=== PATIENT | male | born 1990 | race Caucasian/White ===

== ENCOUNTER 2023-02-11 13:25 | Emergency (ER) | payer OTHER, SELFPAY ==
--- NOTE | 2023-02-11 13:29 | ED_ITS ---
HPI - Skin/Abscess/Foreign Bdy General Chief complaint: Wound/Laceration Stated complaint: l thigh laceration Time Seen by Provider: 02/11/23 13:39 Source: patient and RN notes reviewed History of Present Illness HPI narrative: 32-year-old male with no significant past medical history presenting to the ED complaining of laceration to left anterior thigh s/p using angle mash grinder/saw to cut metal oil tank [employer]. Tetanus unknown. States saw slipped and back last h itting leg. Denies injury to other area, numbness, tingling, weakness. Has been ambulatory. complaint: laceration Related Data Previous Rx's Medication Instructions Recorded cephalexin 500 mg capsule 500 mg PO QID 7 days #28 caps 02/11/23 Allergies Allergy/AdvReac Type Severity Reaction Status Date / Time penicillin V Allergy Unknown Verified 05/13/12 00:00 Sulfa (Sulfonamide Allergy Unknown Verified 05/13/12 00:00 Antibiotics) Review of Systems Review of Systems: Constitutional: No Fever, No Chills ENT/Mouth: No Ear Pain, No Nasal Congestion, No sore throat, No Rhinorrhea, No Swallowing Difficulty Cardiovascular: No Chest Pain, No SOB Respiratory: No Cough, No Sputum Gastrointestinal: No Nausea, No Vomiting, No Abdominal pain Musculoskeletal: No joint pain, No Myalgias, No Joint Swelling Skin: + laceration, No rash Neuro: No Weakness, No Numbness, No Paresthesias Yes all other systems are reviewed and are negative Constitutional: Constitutional: Reports as per [facility] Past Medical History Attestation statement: The following information was validated with the patient. Source: old records reviewed Social History Social History Alcohol intake: current Alcohol intake frequency: holidays/special occasions only Smoked in Last 30 Days: No Use of substances other than those prescribed or required for medical reasons: No Advance Directives: No Physical Exam Vital Signs: Vital Signs: Last Vital Signs Temp 97.9 F 02/11/23 15:40 Pulse 80 02/11/23 15:40 Resp 18 02/11/23 15:40 BP 134/82 02/11/23 15:40 Pulse Ox 98 02/11/23 15:40 O2 Del Method Room Air 02/11/23 15:40 BMI result Body Mass Index 26.5 Const: General: cooperative, healthy appearing and no acute distress Orientation/consciousness: patient oriented x3 Limitations: no limitations HEENT: Head: Yes normal to inspection and Yes atraumatic Ears: hearing grossly normal bilaterally General nose exam: Normal external nose present Face and sinus: Yes normal facial exam Eyes: General: appearance normal, both eyes and all related structures EOM: EOMs intact bilaterally Neck: Neck: Yes normal visual inspection and Yes no meningeal signs Resp: Effort & Inspection: normal respiratory effort and no respiratory distress Cardio: Rate: regular rate Skin: Other: 5 cm laceration noted to left anterior t high with subcutaneous tissue present. Underlying structures appear intact. Bleeding controlled. Neurovascular intact distally Rashes: no rashes Neuro: General: patient oriented x3, tone normal and no meningeal signs Cranial nerves: Yes CN's II-XII intact bilaterally Gait exam (Neuro): Normal gait present Extrem: General: Yes normal to inspection Course Course Course Narrative: RME:?32 yo male here w/ laceration to anterior left thigh while using saw to cut an oil tank at home just [employer]. did not wash out prior to coming here. tetanus not UTD. + [id number] linear laceration to anterior left thigh involving SQ layer. no active bleeding. no visible FB or involvement of deeper structures. will need repair. plan: xr, lac repair, tdap Full HPI, ROS and PE to be performed by the primary ED provider. Medications Administered Discontinued Medications Generic Name Dose Route Start Last Admin Trade Name Freq PRN Reason Stop Dose Admin Bacitracin 1 appl 02/11/23 15:36 02/11/23 15:44 Bacitracin Oint 0.9 Gm Packet TOPICAL 02/11/23 15:37 1 appl ONCE ONE Administration Protocol Diphtheria/Tetanus/Acell Pertussis 0.5 ml 02/11/23 13:32 02/11/23 14:12 Diphth,Pertus(Acell),Tet Adult 0.5 Ml Syringe IM 02/11/23 13:33 0.5 ml .ONCE ONE Administration Lidocaine/Epinephrine 10 ml 02/11/23 13:49 02/11/23 14:12 Lidocaine Hcl 1%/Epi 1:100,000 10 Ml Vial INFILTRATI 02/11/23 13:50 10 ml ONCE ONE Administration Medical Decision Making Medical Decision Making [facility] Narrative: 32-year-old male with no significant past medical history presenting to the ED complaining of laceration to left anterior thigh s/p using angle mash grinder/saw to cut metal oil tank [employer]. On exam vital signs stable, NAD, nontoxic appearing, physical exam as noted above. Laceration to left anterior thigh, contaminated, no appreciable foreign body. Underlying structures appear intact. Low suspicion for fracture, tendon/ligament or nerve or rupture. Plan: Clean wound, update tetanus, repair wound Please refer to course for remaining clinical decision making, interpretation of labs/imaging results, and discussions with consultants and/or family members. Differential Diagnosis Differential Diagnoses: The differential diagnosis associated with the presentation includes As above External Record Review External record reviewed: Inpatient record, Office record, Outpatient record, Prior outpatient labs, Prior outpatient radiology, Primary care record and Outside ED record Tests considered The following testing was considered but not selected: As above Prescription Management I considered prescription management with: Pain Medication and Antibiotic Procedures Laceration Laceration 1: Site: lower extremity Side (If applicable): left Size (cm): 5 Description: linear Depth: simple, single layer Local Anesthetic: lidocaine 1% Amount of anesthesia used (mL): 8 Pre-repair: wound explored, irrigated extensively, deep structures intact and extensive debridement Skin layer closed with: nylon Size (cm): 4-0 Number of sutures: 9 Technique: simple, interrupted Discharge Plan Discharge Clinical Impression: Laceration Patient Disposition: Home, Self-Care Instructions: Laceration (DC) Additional Instructions: Your wounds were repaired today in the emergency department. Keep dry and clean. You need to return to any emergency department, urgent care, or your PCPs office in 7-10 days for suture removal. Closer to 10 with depth of your wound Apply bacitracin and or Neosporin daily Keflex is an antibiotic please take as prescribed Once sutures are removed apply anti scar cream like Mederma If area begins look infected, is red, there is drainage, streaking, or you have fever please return to the emergency department Prescriptions: New cephalexin 500 mg capsule 500 mg PO QID 7 Days Qty: 28 0RF Referrals: Kamilah Brito PA-C [Primary Care Provider] - 10 days
[2023-02-11 13:31] VITALS: BP 137/85; PULSE 84; RESP 16; TEMP 36.1; O2SAT 96; BMI 26.5
[2023-02-11] MEDS: Lidocaine HCl 1%/Epi 1:100,000 10 ML VIAL INFILTRATI (14:12)
[2023-02-11] MEDS: Diphth,Pertus(ACell),Tet Adult 0.5 ML SYRINGE IM (14:12)
--- NOTE | 2023-02-11 14:15 | PC.NURSE ---
medication administered per provider order. lidocaine placed bedside for provider use.
--- NOTE | 2023-02-11 14:30 | PC.NURSE ---
tech bedside attempting to debride wound w/ scrub brush - pt tolerating well at this time.
[2023-02-11 15:40] VITALS: BP 134/82; PULSE 80; RESP 18; TEMP 36.6; O2SAT 98
[2023-02-11] MEDS: Bacitracin Oint 0.9 GM PACKET 1 APPL TOPICAL (15:44)
--- NOTE | 2023-02-11 15:45 | PC.NURSE ---
tech bedside applying bacitracin/covering wound. pt provided w/ d/c paperwork.
== END 2023-02-11 15:52 | disposition home or self-care (01) ==
PROVIDERS: Emergency Provider Emergency Medicine; PCP Physician Assistant Medical
DX: S81.812A Laceration without foreign body, left lower leg, initial encounter (principal); S80.812A Abrasion, left lower leg, initial encounter; X58.XXXA Exposure to other specified factors, initial encounter; Y93.9 Activity, unspecified; Y92.9 Unspecified place or not applicable; Y99.9 Unspecified external cause status; Z23 Encounter for immunization
CPT/HCPCS: 12002; 90471; 90715; 99284